=== PATIENT | female | born 1960 | race Caucasian/White ===

== ENCOUNTER → 2020-08-14 | Outpatient (CLI) | payer BC ==
[~2020-08-14] MED LIST: REGADENOSON 0.4 MG/5 ML SYRINGE IV ONE
--- NOTE | 2020-08-14 10:47 | NM ---
EXAMINATION TYPE: NM stress lexiscan cardiolite DATE OF EXAM: 08/14/2020 COMPARISON: Prior nuclear medicine Lexiscan May 28, 2012 HISTORY: History of hypercholesterolemia and family history of heart attack presents with chest pain, palpitations, and abnormal EKG TECHNIQUE: After the intravenous administration of 9.77 mCi Tc 99m Sestamibi - Cardiolite resting SP ECT images acquired 45 minutes post injection. The patient received 0.4mg Lexiscan, 25.8 mCi Tc 99m Sestamibi - Stress images obtained [address] injection FINDINGS: Review of stress and rest SPECT images demonstrates no distinct perfusion abnormality. Gated analysi s shows normal wall motion with an estimated left ventricular ejection fraction of 51 %. IMPRESSION: No scintigraphic evidence for reversible ischemia. No significant change from prior.
--- NOTE | 2020-08-15 08:54 | EST ---
EXERCISE STRESS AGE: 60 SEX: Female HT: 5'2" WT: 136 lbs. PROTOCOL: Lexiscan Cardiolite STAGE: N/A DURATION OF EXERCISE: 5 min. HEART RATE REST: 77 BLOOD PRESSURE REST: 145/84 MAXIMUM HEART RATE ACHIEVED: 115 MAXIMUM BLOOD PRESSURE: 151/66 85% MPHR: 134 100% MPHR: 158 METS: N/A INDICATIONS: Chest pain. CLINICAL INFORMATION: STRESS DATA: Heart rate 77, pressure is 145/84 mmHg. Baseline EKG showed sinus mechanism. 0.4 mg of Lexiscan given over 15 seconds per protocol. Max heart rate was 115 beats per minute. Maximum pressure was 151/66 mmHg. Clinically, the patient did not have any symptoms of chest pain or chest discomfort and the EKG did not show any significant ST or T-wave abnormalities concerning for ischemia. CONCLUSION: 1. Nondiagnostic electrocardiogram stress testing in response to Lexiscan. 2. Please follow up on the Cardiolite portion on separate report. MMODL / IJN: [id number] /
== END | disposition home or self-care (01) ==
LOC: RADNMMAIN 07:54
PROVIDERS: ATTEND Internal Medicine
DX: I44.4 Left anterior fascicular block (principal)
CPT/HCPCS: 93017; 78452; A9500; J2785

== ENCOUNTER 2021-03-13 09:42 | Day surgery (SDC) | payer BC ==
[2021-03-08 14:31] VITALS: BMI 25.4
[~2021-03-13 09:42] MED LIST changes: +LACTATED RINGERS 1,000 ML IV SCH; +LIDOCAINE 1% (10MG/ML) FOR IV START INTRADERMA PRN; -REGADENOSON 0.4 MG/5 ML SYRINGE IV ONE
[2021-03-13 09:56] VITALS: TEMP 97.1
[2021-03-13] MEDS ORDERED: LIDOCAINE 1% (10MG/ML) FOR IV START INTRADERMA ONE (10:01)
[2021-03-13] MEDS ORDERED: PROPOFOL 10 MG/ML 20 ML VIAL IV ONE (10:38)
[2021-03-13] MEDS ORDERED: LIDOCAINE 1% INJ 10MG/ML (20 ML MDV) ONE (10:38)
--- NOTE | 2021-03-13 10:42 | P.GSHP ---
History of Present Illness H&P Date: 03/13/21 Chief Complaint: Colon cancer screening, GERD Patient here today for upper and lower endoscopy. Last scope done 2015. Patient with history of gastritis, hiatal hernia. Has had some persistent reflux and intermittent episodes of dysphagia at times. No family history of co gabrielle cancer. No history of previous polyps. Past Medical History Past Medical History: GERD/Reflux, Hyperlipidemia Additional Past Medical History / Comment(s): HIATAL HERNIA, states had a work- up for an extra heartbeat. States everything normal. History of Any Multi-Drug Resistant Organisms: None Reported Past Surgical History: Hysterectomy, Orthopedic Surgery, Tonsillectomy, Tubal Ligation Additional Past Surgical History / Comment(s): ARTHROSCOPIC RIGHT KNEE, LEFT MIDDLE FINGER, LEFT FOOT, RIGHT KNEE-TENDON. Previous EGD & colonoscopy. Past Anesthesia/Blood Transfusion Reactions: Motion Sickness Smoking Status: Never smoker - Past Family History Father Family Medical History: Cancer Medications and Allergies Home Medications Medication Instructions Recorded Confirmed Type Atorvastatin Calcium [Lipitor] 10 mg PO HS 03/08/21 03/08/21 History Cholecalciferol (Vitamin D3) 125 mcg PO DAILY 03/08/21 03/08/21 History [Vitamin D3 (125 MCG = 5,000 IU)] Cyanocobalamin (Vitamin B-12) 1,000 mcg PO DAILY 03/08/21 03/08/21 History [Vitamin B12] Lansoprazole [Prevacid] 15 mg PO DAILY 03/08/21 03/08/21 History Fexofenadine HCl [Kathie Allergy] 60 mg PO ONCE 03/13/21 03/13/21 History Allergies Allergy/AdvReac Type Severity Reaction Status Date / Time acetaminophen [From Tylenol] Allergy Headaches Verified 03/13/21 09:58 black walnut Allergy Swelling Verified 03/13/21 09:58 OF THROAT [employer] Allergy Swelling Verified 03/13/21 09:58 OF THROAT codeine Allergy Nausea & Verified 03/13/21 09:58 Vomiting multivitamin Allergy Headaches Uncoded 03/13/21 09:58 Surgical - Exam Vital Signs Temp Pulse Resp BP Pulse Ox 97.1 F L 80 16 166/79 99 03/13/21 09:52 03/13/21 09:52 03/13/21 09:52 03/13/21 09:52 03/13/21 09:52 Physical exam: General: Well-developed, well-nourished HEENT: Normocephalic, sclerae nonicteric Abdomen: Nontender, nondistended Extremities: No edema Neuro: Alert and oriented Assessment and Plan (1) Colon cancer screening Narrative/Plan: Will proceed with upper and lower endoscopy Current Visit: Yes Status: Acute Code(s): Z12.11 - ENCOUNTER FOR SCREENING FOR MALIGNANT NEOPLASM OF COLON SNOMED Code(s): 951405658
--- NOTE | 2021-03-13 11:00 | P.PCN ---
Date of Procedure: 03/13/21 Procedure(s) Performed: PREOPERATIVE DIAGNOSIS: GERD, screening POSTOPERATIVE DIAGNOSIS: Mild gastritis, small gastric polyps, small sliding hiatal hernia, normal colon PROCEDURE: 1. EGD with biopsy 2. Colonoscopy ANESTHESIA: MAC SURGEON: Franky Renner M.D. SPECIMENS: Gastric polyp, antrum ENDOSCOPIC PROCEDURE: The patient was on the endoscopy table in the left decubitus position. The Olympus gastroscope was inserted into the oropharynx and passed under direct visualization to the region of the third portion of the duodenum. From that point the scope was slowly withdrawn inspecting all surfaces carefully. There were no neoplastic inflammatory or polypoid lesions throughout the duodenum. The pylorus was widely patent. The stomach was carefully inspected. There was mild gastritis present. A biopsy of the antrum took place to rule out H. pylori. Patient also had multiple small gastric polyps. The largest one was removed using the cold biopsy forceps. Retroflexion revealed a small sliding hiatal hernia. The esophagus was then carefully examined. There were no neoplastic inflammatory or polypoid lesions throughout the visualized esophagus. The patient was kept on the endoscopy table in the left decubitus position. The Olympus colonoscope was inserted into the anus and passed under direct visualization to the base of the cecum. The appendiceal orifice was visualized. From that point the scope was slowly withdrawn inspecting all surfaces carefully. There were no neoplastic inflammatory or polypoid lesions throughout the cecum, ascending, transverse, descending, sigmoid and rectum. There was no visible diverticulosis noted. Digital rectal examination was normal. The patient was taken to the recovery room in stable condition per anesthesia guidelines. RECOMMENDATIONS: Resume diet. Follow-up colonoscopy in 10 years.
[2021-03-13 11:03] VITALS: BP 124/65; PULSE 76; RESP 12
== END 2021-03-13 11:45 | disposition home or self-care (01) ==
LOC: ORWHC2ENDO 09:42
PROVIDERS: ATTEND Surgery
DX: Z12.11 Encounter for screening for malignant neoplasm of colon (principal); K29.50 Unspecified chronic gastritis without bleeding; K31.7 Polyp of stomach and duodenum; K44.9 Diaphragmatic hernia without obstruction or gangrene; K21.9 Gastro-esophageal reflux disease without esophagitis; E78.5 Hyperlipidemia, unspecified; Z90.710 Acquired absence of both cervix and uterus; Z90.89 Acquired absence of other organs; Z98.51 Tubal ligation status; Z98.890 Other specified postprocedural states; Z80.9 Family history of malignant neoplasm, unspecified; Z79.899 Other long term (current) drug therapy; Z88.6 Allergy status to analgesic agent; Z88.5 Allergy status to narcotic agent; Z91.018 Allergy to other foods; Z88.8 Allergy status to other drugs, medicaments and biological substances
CPT/HCPCS: 88305; 43239; J2001; J2704; G0121

== ENCOUNTER 2022-05-06 08:16 | Day surgery (SDC) | payer BC ==
[2022-05-01 10:43] VITALS: BMI 25.6
--- NOTE | 2022-05-06 06:03 | HP ---
HISTORY AND PHYSICAL DATE OF SURGERY: 05/06/2022. HISTORY OF PRESENT ILLNESS: Mery Ferreira is a 62-year-old patient, seen with symptomatic right knee osteoarthritis. We discussed options for treatment. She elected to proceed with right total knee arthroplasty. Consent was obtained. Medical clearance was provided. PAST MEDICAL HISTORY: Hyperlipidemia, gastroesophageal reflux disease. PAST SURGICAL HISTORY: Tubal ligation, foot surgery, hysterectomy, knee arthroscopy. DAILY MEDICATIONS: 1. Lipitor. 2. Omeprazole. 3. Ibuprofen. ALLERGIES: Codeine. SOCIAL HISTORY: She denies tobacco use. PHYSICAL EVALUATION OF THE RIGHT KNEE: Her range of motion is 0 to 125. Mild effusion. Tenderness, medial joint line. Crepitus, medial patellofemoral compartments with range of motion. Pain with patellofemoral compression. Ligaments stable. Hip rotation without pain. Her distal neurovascular exam is intact. RADIOGRAPHS: Radiographs of the right knee reveal severe osteoarthritic changes. IMPRESSION: 1. Right knee osteoarthritis. 2. Hyperlipidemia. 3. Gastroesophageal reflux disease. PLAN: Right total knee arthroplasty. MMODL / IJN: [id number] /
[~2022-05-06 08:16] MED LIST changes: +ACETAMINOPHEN TAB 500 MG TAB PO PRN; +MELOXICAM 7.5 MG TAB PO PRN; +ONDANSETRON 4 MG/2 ML VIAL IVP ONE; +TRANEXAMIC ACID IN NACL,ISO-OS 1,000 MG in SALINE 1 100ML.BAG IVPB PRN; +fentaNYL (PF) 50 MCG/ML 2 ML AMP IV PRN
[2022-05-06] MEDS ORDERED: DEXAMETHASONE SOD PHOSPHATE 4 MG/ML 1 ML VIAL IVP ONE (09:21)
[2022-05-06] MEDS ORDERED: SCOPOLAMINE 1 MG/72 HR PATCH TRANSDERM ONE (09:21)
[2022-05-06] MEDS ORDERED: MIDAZOLAM 2 MG/2 ML VIAL IVP ONE (09:24)
[2022-05-06] MEDS ORDERED: fentaNYL (PF) 50 MCG/ML 2 ML AMP IVP ONE (09:26)
[2022-05-06] MEDS ORDERED: TRANEXAMIC ACID IN NACL,ISO-OS 1,000 MG/100 ML BAG ONE (10:10)
[2022-05-06] MEDS ORDERED: SUCCINYLCHOLINE CHLORIDE 200 MG/10 ML VIAL IV ONE (10:10)
[2022-05-06] MEDS ORDERED: fentaNYL (PF) 50 MCG/ML 2 ML AMP ONE (10:10)
[2022-05-06] MEDS ORDERED: PROPOFOL 10 MG/ML 20 ML VIAL IV ONE (10:10)
[2022-05-06] MEDS ORDERED: ROPIVACAINE 5 MG/ML 30 ML VIAL ONE (10:10)
[2022-05-06] MEDS ORDERED: LIDOCAINE 2% INJ 20 MG/ML (2 ML VIAL) ONE (10:10)
[2022-05-06] MEDS ORDERED: MIDAZOLAM 2 MG/2 ML VIAL ONE (10:10)
[2022-05-06] MEDS ORDERED: ceFAZolin 1,000 MG in SODIUM CHLORIDE 0.9% 1,000 ML IRRIGATION ONE (10:39)
[2022-05-06] MEDS ORDERED: LACTATED RINGERS 1,000 ML IV ONE ×2 (11:01→11:45)
[2022-05-06] MEDS ORDERED: NALOXONE 0.4 MG/ML 1 ML VIAL IV PRN (11:45)
[2022-05-06] MEDS ORDERED: HYDROcodone/APAP 5-325MG 1 EACH TAB PO PRN (11:45)
[2022-05-06] MEDS ORDERED: HYDROmorphone 0.5 MG/0.5 ML SYRINGE IVP PRN ×2 (11:45)
[2022-05-06] MEDS ORDERED: HYDROmorphone 1 MG/ML 1 ML SYRINGE IVP PRN (11:45)
[2022-05-06] MEDS ORDERED: ONDANSETRON 4 MG/2 ML VIAL IVP PRN (11:45)
[2022-05-06] MEDS ORDERED: HYDROcodone/APAP 7.5-325MG 1 EACH TAB PO PRN (11:45)
--- NOTE | 2022-05-06 11:45 | P.OP ---
Date of Procedure: 05/06/22 Preoperative Diagnosis: Right knee osteoarthritis Postoperative Diagnosis: Right knee osteoarthritis Procedure(s) Performed: Right total knee arthroplasty Implants: 1. Depuy attune size 4 narrow right cruciate retaining cemented femur 2. Depuy attune 4 fixed bearing cemented tibial baseplate 3. Depuy attune size 4 fixed bearing cruciate retaining 8mm polyethylene tibial insert 4. Depuy attune 32 mm all polyethylene cemented patella Anesthesia: GETA, regional (Adductor canal catheter, Ipack block) Surgeon: Stuart Norris Amortization Schedule Clerk #1: Iraj Holley Estimated Blood Loss (ml): 40 Pathology: other (Bone) Condition: stable Disposition: PACU Indications for Procedure: 62-year-old patient seen with symptomatic right knee osteoarthritis. After treatment options were discussed, she elected to proceed with total knee art hroplasty. Operative Findings: See description of procedure Description of Procedure: Patient was taken to the operative suite after having an adductor canal catheter placed by the department of anesthesia as well as an Ipack block for postoperative pain management. Patient underwent a general anesthetic by the department of anesthesia. Patient was given preoperative IV intake antibiotics and TXA. A well-padded tourniquet was placed about the right lower extremity. The lower extremity was then prepped and draped in the normal sterile orthopedic fashion. The extremity was elevated, a tourniquet was insufflated to 300. A standard anterior incision was made sharply through skin. Dissection was taken down through the subcutaneous soft tissues down to the extensor mechanism. A medial arthrotomy was performed, patella was everted and knee was flexed. There was advanced osteoarthritis noted. I introduced my distal intramedullary fe moral drill. I then introduced the distal femoral cutting jig. Iraj MILLIGAN secured the cutting jig with 2 pins. I held retractors in position while Mark MILLIGAN performed the distal femoral resection through the guide area we now removed her distal femoral cutting guide. We now placed our 4-in-1 femoral cutting block and positioned and it was secured with 2 pins by Iraj MILLIGAN while I held the block in position. The distal femoral finishing was now completed. A proximal tibial cutting guide was positioned. I held the guide in the appropriate position with both hands while Iraj MILLIGAN inserted stabilizing pins into the guide. Proximal tibial cut was made. We now placed a trial femoral component into position, along with an appropriate size tibial tray and insert. We now took the knee through range of motion and had full extension good flexion and good overall soft tissue balance noted. The patella was everted and stabilized with 2 towel clips held by Iraj MILLIGAN while I performed a flush with patellar quad tendon utilizing a fresh sawblade. We templated the patella, appropriate drill holes were made. An appropriate trial patella was positioned, knee was taken through full range of motion with the patella tracking very nicely. The trial patella was removed. Drill holes were made through the femoral component. All trial components were removed after ma rking off the appropriate rotation of the tibia. Retractors were now positioned along the proximal tibia. An appropriate keel punch was made with the appropriate size tibial guide by myself while Mark MILLIGAN assisted by holding retractors. At this point appropriate size implants were chosen and opened. The joint was irrigated copiously with pulse lavage mechanical irrigation. The wound was irrigated with pulse lavage mechanical irrigation. We mixed antibiotic methylmethacrylate. We placed the knee into flexion. We placed multiple retractors assisted by Iraj MILLIGAN to expose the proximal tibia. Once the methyl methacrylate was ready, the tibial component was cemented into place removing any excess methylmethacrylate form by both myself and Iraj MILLIGAN. The femoral component was cemented into place removing the removing any excess methylmethacrylate performed by both myself and Iraj MILLIGAN. We then inserted the appropriate size polyethylene tibial insert. We made sure that it was locked into position. We took the knee into full extension, and then back in a flexion making sure we had removed any excess methylmethacrylate. The patellar component was then cemented down and secured with clamp. Excess methylmethacrylate removed. We kept the knee in full extension, patellar clamp in position until methylmethacrylate had hardened. Once it had hardened the [employer] watson clamp was removed. The knee was taken through full range of motion. The patella tracked nicely. There was good soft tissue balancing. The tourniquet was now released. Additional hemostasis was achieved via electrocautery. A second gram of TXA was given. The wound again was irrigated with pulse lavage mechanical irrigation. The superficial soft tissues were infiltrated local analgesic. The extensor mechanism was repaired with Ethibond suture. We checked the repair with range of motion and it was stable. The subcutaneous soft tissues were repaired with Vicryl in layers. The skin was approximated with pernio/Dermabond. Sterile dressings were applied followed by loose web roll and Nacho bandage. The patient was transferred to a bed, and taken to recovery in stable and satisfactory condition. Iraj MILLIGAN assisted with this complex procedure.
[2022-05-06 12:19] VITALS: TEMP 97
[2022-05-06] MEDS: HYDROmorphone 0.5 MG/0.5 ML SYRINGE IVP ONE ×2 (12:22→12:50)
[2022-05-06] MEDS ORDERED: ROPIVACAINE 1,100 MG, SODIUM CHLORIDE 0.9% 500 ML 330 ML, EMPTY PAIN BALL 1 EACH MISCELLANE PRN ×2 (12:41)
[2022-05-06] MEDS ORDERED: HYDROmorphone 0.5 MG/0.5 ML SYRINGE IVP ONE (13:06)
[2022-05-06 13:21] VITALS: RESP 16
--- NOTE | 2022-05-06 13:45 | XR ---
EXAMINATION TYPE: XR knee limited RT DATE OF EXAM: 05/06/2022 CLINICAL HISTORY: Right knee pain and arthritis status post total knee replacement. TECHNIQUE: Portable AP and crosstable lateral views of the right knee are obtained immediately posto peratively. COMPARISON: None FINDINGS: Metallic hardware from total right knee arthroplasty is seen and appears satisfactory in a lignment and position. There is evidence of recent surgery with diffuse subcutaneous gas and soft ti ssue swelling noted. IMPRESSION: METALLIC HARDWARE FROM TOTAL RIGHT KNEE ARTHROPLASTY IS SATISFACTORY IN ALIGNMENT.
[2022-05-06] MEDS ORDERED: ROPIVACAINE 0.2%-NS ON-Q PUMP 1,090 MG, EMPTY PAIN BALL 1 EACH MISCELLANE PRN (15:42)
--- NOTE | 2022-05-06 15:42 | P.ANPRN ---
Procedure Note - Anesthesia - Nerve Block Performed Right Adductor Canal Infusion Time Out Performed: Yes (0923) Date of Procedure: 05/06/22 Procedure Start Time: : Procedure Stop Time: :34 Location of Patient: PreOp Indication: Acute Post-Operative Pain, Dx/Pain Location (Right Knee) Specifically requested for management of pain by Dr.: Stuart Norris Sedation Type: Sedate with meaningful contact maintained Preparation: Sterile Prep, Sterile Dressing Position: Supine Catheter: Indwelling Needle Types: Pajunk Needle Gauge: 18 Ultrasound used to visualize needle placement: Yes Ultrasound used to observe medication spread: Yes Injectate: 0.5% Ropivacaine (see comment for volume) (20 cc) Blood Aspirated: No Pain Paresthesia on Injection Noted: No Resistance on Injection: Normal Image Stored and Saved: Yes Events: Uneventful and Well Tolerated Right iPack Single Time Out Performed: Yes Date of Procedure: 05/06/22 Location of Patient: PreOp Indication: Acute Post-Operative Pain, Dx/Pain Location (Right knee) Specifically requested for management of pain by Dr.: Stuart Norris Sedation Type: Sedate with meaningful contact maintained Preparation: Sterile Prep Position: Left Lateral Catheter: None Needle Types: Pajunk Needle Gauge: 21 (100 mm) Ultrasound used to visualize needle placement: Yes Ultrasound used to observe medication spread: Yes Injectate: 0.5% Ropivacaine (see comment for volume) (20 cc) Blood Aspirated: No Pain Paresthesia on Injection Noted: No Resistance on Injection: Normal Image Stored and Saved: Yes Events: Uneventful and Well Tolerated
[2022-05-06 16:05] VITALS: BP 129/71; PULSE 67
== END 2022-05-06 16:53 | disposition home health service (06) ==
LOC: OR 08:16
PROVIDERS: ATTEND Orthopaedic Surgery
DX: M17.11 Unilateral primary osteoarthritis, right knee (principal); G89.18 Other acute postprocedural pain; E78.5 Hyperlipidemia, unspecified; K21.9 Gastro-esophageal reflux disease without esophagitis; I10 Essential (primary) hypertension; M25.461 Effusion, right knee; Z98.51 Tubal ligation status; Z47.89 Encounter for other orthopedic aftercare; Z90.710 Acquired absence of both cervix and uterus; Z79.02 Long term (current) use of antithrombotics/antiplatelets; Z79.83 Long term (current) use of bisphosphonates; Z79.1 Long term (current) use of non-steroidal anti-inflammatories (NSAID); Z88.6 Allergy status to analgesic agent; Z88.5 Allergy status to narcotic agent
CPT/HCPCS: 27447; 97110; 97161; 64999; 64448; 76942; 88300; 73560; C1776; C1713 ×2; J2250; J1100; J0690 ×2; J2405; J3010; J2795; J1170

== ENCOUNTER → 2023-09-09 | Outpatient (CLI) | payer MEDICARE, BC ==
--- NOTE | 2023-09-09 10:52 | MR ---
EXAMINATION TYPE: MR lumbar spine wo con DATE OF EXAM: 09/09/2023 COMPARISON: CT scan 09/21/2012. HISTORY: Back pain TECHNIQUE: T1 and T2 axial and sagittal images of the lumbar spine are submitted. FINDINGS: There is no abnormal signal seen within the visualized spinal cord or paraspinal soft tissu es. There is a benign-appearing cyst within the right kidney. There also is an intermediate area of s ignal along the lower pole medial to the right kidney for which ultrasound is recommended. This may b e artifactual. There is a extrarenal pelvis on the right similar to the previous CT scan of the abdom en and pelvis. At T12-L1 there is moderate degenerative disc disease but no evidence of canal stenosis. Mild circumf erential disc bulging but no foraminal encroachment. There is a grade 1 retrolisthesis of T12-L1. Min imal thickening or subcentimeter nodularity left adrenal gland too small to characterize. At L1-2 there is degenerative disc disease with disc circumferential bulging with no evidence of aric iation or canal stenosis. Neural foramina are patent. Grade 1 retrolisthesis L1-L2. At L2-3 there is degenerative disc disease and facet arthropathy but no disc herniation or canal sten osis or neural foraminal encroachment. At L3-4 there is hypertrophic change of the facets. Mild circumferential disc bulging with no evidenc e of focal herniation or canal stenosis. Neural foramina patent. At L4-5 there is mild degenerative disc disease with grade 1 anterior listhesis. Severe advanced face t arthropathy and ligamentum flavum hypertrophy. Posterior disc bulging greater paracentrally Neural foramina are mildly narrowed and there is moderate central stenosis At L5-S1 there is mild degenerative disc disease. There is mild circumferential disc bulging greater laterally to the right mild right-sided foraminal origin. There is moderate facet arthropathy. No can al stenosis. IMPRESSION: 1. Grade 1 anterolisthesis L4-L5 appears degenerative secondary to advanced facet arthropathy. Modera te canal stenosis. 2. Additional multilevel mild degenerative disc disease. 3. Recommend ultrasound of the right kidney as discussed above. 4. Mild right foraminal encroachment at L5-S1 secondary to lateral disc bulging.
== END | disposition home or self-care (01) ==
LOC: RADMRIMAIN 08:50
PROVIDERS: ATTEND Internal Medicine
DX: M47.816 Spondylosis without myelopathy or radiculopathy, lumbar region (principal); M43.16 Spondylolisthesis, lumbar region; M48.061 Spinal stenosis, lumbar region without neurogenic claudication; M51.36 Other intervertebral disc degeneration, lumbar region; M99.73 Connective tissue and disc stenosis of intervertebral foramina of lumbar region
CPT/HCPCS: 72148

== ENCOUNTER 2023-09-17 06:41 | Day surgery (SDC) | payer MEDICARE, BC, OTHER ==
[2023-09-12 12:06] VITALS: BMI 25.6
[~2023-09-17 06:41] MED LIST changes: -ACETAMINOPHEN TAB 500 MG TAB PO PRN; -LACTATED RINGERS 1,000 ML IV SCH; -LIDOCAINE 1% (10MG/ML) FOR IV START INTRADERMA PRN; -MELOXICAM 7.5 MG TAB PO PRN; -ONDANSETRON 4 MG/2 ML VIAL IVP ONE; +TETRACAINE 0.5% OPHTH (PF) DROPS 4 ML BTL OP PRN; -TRANEXAMIC ACID IN NACL,ISO-OS 1,000 MG in SALINE 1 100ML.BAG IVPB PRN; -fentaNYL (PF) 50 MCG/ML 2 ML AMP IV PRN
[2023-09-17] MEDS: CYCLOPENTOLATE 1% OPHTH SOLN 2 ML BTL OP PRN (07:12)
[2023-09-17] MEDS: LACTATED RINGERS 1,000 ML IV SCH (07:14)
[2023-09-17] MEDS: PHENYLEPHRINE 2.5% OPHTH DRP 2ML OP PRN (07:15)
[2023-09-17] MEDS: CYCLOPENTOLATE 1% OPHTH SOLN 2 ML BTL OP ONE ×2 (07:18→07:24)
[2023-09-17] MEDS ORDERED: MIDAZOLAM 2 MG/2 ML VIAL ONE (07:58)
[2023-09-17] MEDS ORDERED: fentaNYL (PF) 50 MCG/ML 2 ML AMP ONE (07:58)
[2023-09-17] MEDS: MOXIFLOXACIN HCL 0.5% DROPS 3 ML BTL OP PRN (08:16)
[2023-09-17] MEDS: EPINEPHrine (PF) 0.3 ML in BALANCED SALT IRRIG SOLN COMB2 500 ML IRRIGATION ONE (08:16)
[2023-09-17] MEDS: LIDOCAINE 1% (PF) 10MG/ML VIAL MISCELLANE ONE (08:16)
[2023-09-17] MEDS: HYALURONATE SODIUM INTRAOCULAR 1 EACH SYRINGE (12MG/ML) INTRAOCULA ONE (08:16)
[2023-09-17] MEDS: TIMOLOL 0.5% OPHTH DROPS 5 ML BTL OP PRN (08:16)
[2023-09-17] MEDS: BALANCED SALT IRRIG SOLN COMB2 15 ML IRRIG.SOLN INTRAOCULA ONE (08:16)
--- NOTE | 2023-09-17 08:39 | P.OP ---
Date of Procedure: 09/17/23 Preoperative Diagnosis: NS & CS & astig Postoperative Diagnosis: same Procedure(s) Performed: same Implants: [id number] 21.50 Anesthesia: MAC Surgeon: Ben Cornelius Pathology: none sent Condition: stable Disposition: same day Indications for Procedure: blurry vision Operative Findings: no complications
[2023-09-17 09:07] VITALS: TEMP 97
[2023-09-17 09:38] VITALS: BP 133/86; PULSE 69; RESP 17
--- NOTE | 2023-09-18 07:37 | OP ---
OPERATIVE REPORT DATE OF SERVICE : 09/17/2023 PROCEDURES PERFORMED: Phacoemulsification of cataract and intraocular lens implant of the right eye. PREOPERATIVE DIAGNOSES: 1. Nuclear sclerosis. 2. Cortical sclerosis. POSTOPERATIVE DIAGNOSES: 1. Nuclear sclerosis. 2. Cortical sclerosis. ANESTHESIA: Topical. ESTIMATED BLOOD LOSS: None. SPECIMEN TAKEN: None. NARRATIVE: After obtaining the appropriate consent in the preoperative area, the patient was asked to sit upright and the axes of 0 and 180 degrees were identified and marked with a gentian levy marker. She was then brought to the operating room where she was placed under cardiac monitoring, prepped and draped in the usual sterile manner. She was approached from her right temporal side. Using previously acquired corneal topography information, the axis of 4 degrees was identified and marked with a Platyp[employer] TV axis marker. At the 11 o'clock position, a paracentesis with an MVR blade was created through this opening, 1% Xylocaine MPF 50:50 mix with balanced salt solution was injected into the anterior chamber. This was followed by stabilization of the anterior chamber with Amvisc. At the 9 o'clock position, a 2.5 mm keratome was used to create a self-sealing corneal flap incision. Through this opening, a cystotome was introduced to begin a continuous tear capsulorrhexis, which was then completed using the Utrata forceps. Hydrodissection and hydrodelineation of the lens were accomplished with balanced salt solution. Phacoemulsification of the lens utilizing phacochop was accomplished in 9.09 seconds at 9.4% power. This was followed by installation of additional Xylocaine MPF and removal of the remaining cortical material under irrigation and aspiration as well as careful polishing of the posterior capsule in the capsule vacuum mode. Additional Amvisc was then used to stabilize the lens capsule and a Bausch and Lomb [id number], 21.5 diopter spherical equivalent posterior chamber intraocular lens was inserted into the bag without difficulty. The remaining viscoelastic was removed from in and around the intraocular lens. The lens was rotated then to align with the 4 degree guero previously placed on the patient's cornea. The eye was then brought to normal intraocular pressure through the paracentesis port and the wounds were secured using Tisseel. She then received 2 drops of 0.5% timolol followed by 2 drops of moxifloxacin, was then lightly patched and shielded in the usual manner. There were no complications from the procedure. She tolerated the procedure well and was returned to outpatient recovery in good condition. [id number] / IJN: [id number] /
== END 2023-09-17 09:16 | disposition home or self-care (01) ==
LOC: OR 06:41
PROVIDERS: ATTEND Ophthalmology
DX: H25.11 Age-related nuclear cataract, right eye (principal); E78.5 Hyperlipidemia, unspecified; K21.9 Gastro-esophageal reflux disease without esophagitis; Z88.5 Allergy status to narcotic agent; Z96.1 Presence of intraocular lens; Z79.899 Other long term (current) drug therapy
CPT/HCPCS: 66984; V2787; C1780; J2250; J0171; J3010; J2001

== ENCOUNTER 2023-10-01 06:57 | Day surgery (SDC) | payer MEDICARE, BC, OTHER ==
[2023-09-26 16:42] VITALS: BMI 25.6
[2023-10-01] MEDS: LACTATED RINGERS 1,000 ML IV SCH (07:17)
[2023-10-01] MEDS: CYCLOPENTOLATE 1% OPHTH SOLN 2 ML BTL OP PRN (07:29)
[2023-10-01] MEDS: PHENYLEPHRINE 2.5% OPHTH DRP 2ML OP PRN (07:32)
[2023-10-01 07:41] VITALS: TEMP 98.6
[2023-10-01] MEDS ORDERED: fentaNYL (PF) 50 MCG/ML 2 ML AMP ONE (08:02)
[2023-10-01] MEDS ORDERED: MIDAZOLAM 2 MG/2 ML VIAL ONE (08:02)
[2023-10-01] MEDS: EPINEPHrine (PF) 0.3 ML in BALANCED SALT IRRIG SOLN COMB2 500 ML IRRIGATION ONE (08:21)
[2023-10-01] MEDS: HYALURONATE SODIUM INTRAOCULAR 1 EACH SYRINGE (12MG/ML) INTRAOCULA ONE (08:25)
[2023-10-01] MEDS: MOXIFLOXACIN HCL 0.5% DROPS 3 ML BTL OP PRN (08:26)
[2023-10-01] MEDS: BALANCED SALT IRRIG SOLN COMB2 15 ML IRRIG.SOLN INTRAOCULA ONE (08:26)
[2023-10-01] MEDS: LIDOCAINE 1% (PF) 10MG/ML VIAL INTRAARTIC ONE (08:26)
[2023-10-01] MEDS: TIMOLOL 0.5% OPHTH DROPS 5 ML BTL OP PRN (08:27)
--- NOTE | 2023-10-01 08:47 | P.OP ---
Date of Procedure: 10/01/23 Preoperative Diagnosis: NS & CS Postoperative Diagnosis: same Procedure(s) Performed: PIOL, OS Implants: [id number] 21.00 Anesthesia: MAC Surgeon: Ben Cornelius Pathology: none sent Condition: stable Disposition: same day Indications for Procedure: blurry Operative Findings: no complications
[2023-10-01 09:22] VITALS: BP 131/54; PULSE 77; RESP 16
--- NOTE | 2023-10-01 13:01 | OP ---
OPERATIVE REPORT DATE OF SERVICE : 10/01/2023 PROCEDURE: Phacoemulsification cataract and intraocular lens implant of the left eye. PREOPERATIVE DIAGNOSES: Nuclear sclerosis, cortical sclerosis, and regular astigmatism. POSTOPERATIVE DIAGNOSES: Nuclear sclerosis, cortical sclerosis, and regular astigmatism. NARRATIVE: After obtaining the appropriate consent, the patient was brought to the operating room. There, she was placed under cardiac monitoring, prepped and draped in the usual sterile manner. She was approached from her left temporal side, and using previously acquired corneal topography information, the axis of 3 degrees was identified and marked with a [facility] [place] Marker. At the 5 o'clock position, an MVR blade was used to create a paracentesis port. Through this opening, 1% Xylocaine MPF 50:50 mix with balanced salt solution was injected into the anterior chamber. This was followed by stabilization of the anterior chamber with Amvisc. At the 3 o'clock position, a 2.5 mm keratome was used to create a self-sealing corneal flap incision. Through this opening, a cystotome was introduced to begin a continuous tear capsulorrhexis, which was then completed using the Utrata forceps. Hydrodissection and hydrodelineation of the lens were accomplished with balanced salt solution. Phacoemulsification lens utilizing phaco chop was accomplished in 9.67 seconds at 11.8% power. Additional lidocaine MPF was instilled into the anterior chamber. This was followed by removal of the remaining cortical material under irrigation and aspiration as well as careful polishing of the posterior capsule in capsule vacuum mode. Additionally, it was noted that there was some tenacious cortical material, so using both to loosen the remaining cortical material, this was accomplished without difficulty. Amvisc was then used to stabilize the capsular bag and a Bausch and Lomb [id number], 21-diopter posterior chamber intraocular lens was then inserted into the capsular bag without difficulty. The remaining viscoelastic was removed from in and around the intraocular lens and the lens was rotated to its proper final resting position in accordance with the axis guero on the patient's cornea. The eye was then brought to normal intraocular pressure through the paracentesis port and Tisseel was used to ensure watertight integrity. She then received 2 drops of 0.5% moxifloxacin and 2 drops of 0.5% timolol. She was then lightly patched and shielded in the usual manner. There were no complications from the procedure. She tolerated the procedure well and was returned to outpatient recovery in good condition. EVAN / GERRYN: [id number] /
== END 2023-10-01 09:24 | disposition home or self-care (01) ==
LOC: OR 06:57
PROVIDERS: ATTEND Ophthalmology
DX: H25.12 Age-related nuclear cataract, left eye (principal); H25.012 Cortical age-related cataract, left eye; H52.222 Regular astigmatism, left eye; E78.5 Hyperlipidemia, unspecified; Z88.5 Allergy status to narcotic agent; Z79.899 Other long term (current) drug therapy; Z88.6 Allergy status to analgesic agent
CPT/HCPCS: 66984; V2787; C1780; J2250; J0171; J3010; J2001

== ENCOUNTER → 2023-12-02 | Outpatient (CLI) | payer MEDICARE, BC ==
--- NOTE | 2023-12-03 08:54 | US ---
EXAMINATION TYPE: US kidneys/renal and bladder DATE OF EXAM: 12/02/2023 COMPARISON: NONE CLINICAL INDICATION: Female, 63 years old with history of N28.1 CYST OF KIDNEY, ACQUIRED; known right renal cyst, no symptoms, area noted on MRI EXAM MEASUREMENTS: Right Kidney: 9.2 x 3.7 x 4.4 cm Left Kidney: 9.1 x 3.9 x 5.2 cm Right Kidney: upper pole simple cyst seen = 1.1 x 1.1 x 1.2cm Left Kidney: No hydronephrosis or masses seen Bladder: wnl Bilateral Jets seen: yes IMPRESSION: #1 simple cyst right kidney
== END | disposition home or self-care (01) ==
LOC: RADUSWWP 11:22
PROVIDERS: ATTEND Internal Medicine
DX: N28.1 Cyst of kidney, acquired (principal)
CPT/HCPCS: 76770

== ENCOUNTER 2024-07-13 09:00 | Day surgery (SDC) | payer MEDICARE, BC ==
[2024-07-13 09:20] VITALS: TEMP 97.2
[2024-07-13] MEDS: LACTATED RINGERS 1,000 ML IV SCH (09:26)
[2024-07-13] MEDS: FAMOTIDINE 20 MG/2 ML VIAL IV STA (09:31)
[2024-07-13] MEDS: ONDANSETRON 4 MG/2 ML VIAL IVP STA (09:32)
[2024-07-13] MEDS ORDERED: LIDOCAINE 2% (PF) 20 MG/ML 5 ML VIAL ONE (09:53)
[2024-07-13] MEDS ORDERED: PROPOFOL 10 MG/ML 20 ML VIAL IV ONE (09:53)
--- NOTE | 2024-07-13 09:59 | P.GSHP ---
History of Present Illness H&P Date: 07/13/24 Chief Complaint: GERD 64-year-old female here today for upper endoscopy. Last EGD 3 years ago. Patient with ongoing acid reflux. Patient takes lansoprazole 40 mg every morning and 20 mg of Pepcid every evening. Rare episodes of dysphagia. Past Medical History Past Medical History: Eye Disorder, GERD/Reflux, Hyperlipidemia, Musculoskeletal Disorder, Osteoarthritis (OA) Additional Past Medical History / Comment(s): Hiatal hernia. States had a work- up for an extra heartbeat, everything normal. jameson cataract. Bilateral carpal tunnel. cyst on kidney History of Any Multi-Drug Resistant Organisms: None Reported Past Surgical History: Hysterectomy, Joint Replacement, Orthopedic Surgery, Tonsillectomy, Tubal Ligation Additional Past Surgical History / Comment(s): ARTHROSCOPIC RIGHT KNEE, LEFT MIDDLE FINGER, LEFT FOOT SURGERY, RIGHT KNEE-TENDON REPAIR, EGD & colonoscopy, right total knee replacement. jameson cataract removal Past Anesthesia/Blood Transfusion Reactions: Motion Sickness Smoking Status: Never smoker - Past Family History Father Family Medical History: Cancer Sister(s) Family Medical History: Cancer Additional Family Medical History / Comment(s): HEART PROBLEMS DUE TO CHEMO. Medications and Allergies Home Medications Medication Instructions Recorded Confirmed Type Cyanocobalamin (Vitamin B-12) 1,000 mcg PO DAILY 03/08/21 07/08/24 History [Vitamin B12] Lansoprazole [Prevacid] 15 mg PO DAILY 03/08/21 07/08/24 History Fexofenadine HCl [Kathie Allergy] 60 mg PO DAILY 03/13/21 07/08/24 History Cholecalciferol [Vitamin D3 (25 50 mcg PO DAILY 09/12/23 07/08/24 History Mcg = 1000 Iu)] Ibuprofen [Motrin Ib] 400 mg PO Q8H PRN 09/12/23 07/08/24 History Ezetimibe [Zetia] 10 mg PO HS 07/08/24 07/08/24 History Famotidine 40 mg PO HS 07/08/24 07/08/24 History Allergies Allergy/AdvReac Type Severity Reaction Status Date / Time acetaminophen [From Tylenol] Allergy Headaches Verified 07/13/24 09:17 black walnut Allergy Swelling Verified 07/13/24 09:17 OF THROAT [place] And Derivatives Allergy Swelling Verified 07/13/24 09:17 OF THROAT codeine Allergy Nausea & Verified 07/13/24 09:17 Vomiting tree nut Allergy Unknown Verified 07/13/24 09:17 multivitamin Allergy Headaches Uncoded 07/13/24 09:17 Surgical - Exam Vital Signs Temp Pulse Resp BP Pulse Ox 97.2 F L 86 16 126/75 98 07/13/24 09:19 07/13/24 09:19 07/13/24 09:19 07/13/24 09:19 07/13/24 09:19 Physical exam: General: Well-developed, well-nourished HEENT: Normocephalic, sclerae nonicteric Abdomen: Nontender, nondistended Extremities: No edema Neuro: Alert and oriented Assessment and Plan (1) GERD (gastroesophageal reflux disease) Narrative/Plan: Will proceed with EGD at this time. Current Visit: Yes Status: Acute Code(s): K21.9 - GASTRO-ESOPHAGEAL REFLUX DISEASE WITHOUT ESOPHAGITIS SNOMED Code(s): 450562872
--- NOTE | 2024-07-13 10:06 | P.PCN ---
Date of Procedure: 07/13/24 Procedure(s) Performed: Preoperative Dx: GERD Postoperative Dx: Gastritis, gastric polyps, hiatal hernia Procedure: EGD with Bx Anesthesia: Sedation Endoscopist: Dr. Renner Specimens: Antrum, gastric polyps Endoscopic Procedure: The patient was on the endoscopy table in the left decubitus position. The Olympus gastroscope was inserted into the oropharynx and passed under direct visualization to the region of the third portion of the duodenum. From that point the scope was slowly withdrawn inspecting all surfaces carefully. There were no neoplastic inflammatory or polypoid lesions throughout the duodenum. The pylorus was widely patent. The stomach was carefully inspected. There was mild gastritis present. A biopsy of the antrum took place to rule out H. pylori. Retroflexion revealed a small sliding hiatal hernia. The patient had multiple gastric polyps largest 1 measuring about 7 mm. Biopsy of the largest polyp took place. The esophagus was examined. There was no inflammatory changes noted. The patient was then taken to the recovery room in stable condition per anesthesia guidelines. Recommendations: Await biopsy results. Continue antiacids.
[2024-07-13 10:27] VITALS: BP 135/79; PULSE 68; RESP 16
== END 2024-07-13 10:45 | disposition home or self-care (01) ==
LOC: ORWHC2ENDO 09:00
PROVIDERS: ATTEND Surgery
DX: K21.9 Gastro-esophageal reflux disease without esophagitis (principal); K44.9 Diaphragmatic hernia without obstruction or gangrene; K29.50 Unspecified chronic gastritis without bleeding; K31.7 Polyp of stomach and duodenum; E78.5 Hyperlipidemia, unspecified; M19.90 Unspecified osteoarthritis, unspecified site; Z79.899 Other long term (current) drug therapy; Z96.651 Presence of right artificial knee joint; Z88.6 Allergy status to analgesic agent; Z91.018 Allergy to other foods; Z88.5 Allergy status to narcotic agent
CPT/HCPCS: 88305; 43239; J2405; J3490; J2704; J2003

== ENCOUNTER → 2024-08-05 | Outpatient (CLI) | payer MEDICARE, BC | END | disposition home or self-care (01) | LOC: LABWHC1 12:58 | PROVIDERS: ATTEND Otolaryngology | DX: Z53.9 Procedure and treatment not carried out, unspecified reason (principal) ==

== ENCOUNTER → 2024-08-26 | Outpatient (CLI) | payer MEDICARE, BC ==
[2024-08-26 10:10] VITALS: BP 152/68; PULSE 84; RESP 16; TEMP 98.3
--- NOTE | 2024-08-26 15:41 | P.PAINPG ---
Objective - Vital Signs Vital signs: Vital Signs Temp 98.3 F 08/26/24 09:55 Pulse 84 08/26/24 09:55 Resp 16 08/26/24 09:55 BP 152/68 08/26/24 09:55 Pulse Ox 97 08/26/24 09:55 FiO2 Intake & Output 08/25/24 08/26/24 08/26/24 18:59 06:59 18:59 Weight 63.503 kg PQRS Measure Charge Sheet Mode of Arrival: Ambulatory Comment: HISTORY OF PRESENT ILLNESS: A 64 yr old female as a referral from [facility] presents today w severe and chronic LBP > 5 yrs secondary to radiculopathy, spondylosis and facet arthropathy without myelopathy for evaluation. Pt states pain level is provoked at 6 /10 in intensity, constant, localized in the lumbar spine, predominantly axial, stinging in character w occasional shooting pain towards the hips and LEs. Pain is provoked by over activity. Pain is alleviated by PT x 6 wks which ended in Jul 2024, physician guided home exercises every other day weekly since Jul 2024, heat, medications (Ibu), repositioning and rest . Oswestry axial pain score at 25. PMH: OA, GERD, Hyperlipidemia PSH: EGD/ Colonoscopies, HH, BL Cataract Resection, BL CTR, Hysterectomy, R Total Knee, R Arthroscopy (2013), L 3rd Trigger Finger Release, L Foot Surgery, Tubal Ligation SH: Never smoker, Occ ETOH use, No illicit drug use FH: Fa- CA. Sis- CA All: See list Meds: See list REVIEW OF ORGAN SYSTEMS: CONSTITUTIONAL: No fevers or chills. No recent weight los s. NEUROLOGICAL: + numbness and tingling along the distal extremities. No seizure disorders or headaches. MUSCULOSKELETAL: + pain PSYCHIATRIC: Denies current depression or suicidal thoughts. Physical Examinations : Constitutional : Cooperative , not in acute distress . Neurologic : Cranial nerve II to XII intact. No focal neurological deficits. Psychiatric : alert & oriented x 3. Matching mood & appropriate affect. Judgment & insight intact. Musculoskeletal : Cervical Spine Motor strength in the deltoid and biceps: Normal right side. Normal Left side Motor strength biceps and the wrist ex tensors: Normal right side . Normal left side Motor strength in the triceps muscle: Normal right side. Normal left side Deep tendon reflexes: Normal at the biceps. Normal at Brachioradialis. Normal at triceps Vertebral body tenderness to deep palpation over Cervical facet loading test: positive bilaterally Spurling test: positive bilaterally Neck distraction test: positive bilaterally Dany sign: positive bilaterally Lumbar spine Motor strength lower extremities ,thigh and legs 5/5 Right side , 5/5 Left side Deep tendon reflexes : Normal Knee Jerk. Normal Ankle Jerk Vertebral body tenderness over L5 Chase Test positive Lumbar facet Loading Test: positive Right / positive Left Range of motion of the lumbar spine Flexion 30 degrees, extension 10 degrees Straight Leg Raise test: Left < Right positive at < 35 degrees Idris test: positive right / positive left. Severe tenderness over the Sacroiliac joint on the Right / Left sides Gaenslen test: positive bilaterally Seated flexion test: positive bilaterally. Sacral spine : Severe tenderness over the Sacroiliac joint: right side / left side Range of motion: Flexion of the lumbar spine <60 degrees Range of motion: Extension of the lumbar spine <20 degrees Gaenslen's Test positive Idris test: positive right side / left side Thigh Thrust Test Sacral Thrust Test Imaging: MRI non contrast lumbar spine from 09/09/23 reviewed Assessment/ Plan : L4-L5 anterolisthesis, lumbar facet arthropathy Recommendation of TOBI L5-S1 #1. Risks, benefits of procedure discussed and patient verbalized understanding. Admits to anti- coagulant use or medical history of diabetes. Protocol for discontinuation/ continuation of medications phyllis procedure discussed. All questions answered. I have spent greater than 30 minutes on patient care today. Dr Bob was kd ilable by phone for the evaluation of this patient. The time was used to review the medical records including relevant urine studies and Prescription history (MAPs), review of the available imaging, evaluation and examination of the patient, coordination of care with the medical staff and if applicable referring physicians, as well as creation of the medical record - Pain Location Lower Back Non-Pharmacological Interventions: Physical Therapy, Position/Reposition Pharmacological Interventions: PRN Medication PQRS Narrative: Smoking Status Never smoker Blood Pressure 152/68 Pain Intensity [Lower Back] 6 Scale Used Numeric (1 - 10) Hx Alcohol Use (MH) No Home Medications: Ambulatory Orders Cyanocobalamin (Vitamin B-12) [Vitamin B12] 1,000 mcg PO DAILY 03/08/21 Lansoprazole [Prevacid] 15 mg PO DAILY 03/08/21 Fexofenadine HCl [Kathie Allergy] 60 mg PO DAILY 03/13/21 Cholecalciferol [Vitamin D3 (25 Mcg = 1000 Iu)] 50 mcg PO DAILY 09/12/23 Ibuprofen [Motrin Ib] 400 mg PO Q8H PRN 09/12/23 Ezetimibe [Zetia] 10 mg PO HS 07/08/24 Famotidine 40 mg PO HS 07/08/24 Controlled Substance Measures - Controlled Substance Measures Is patient prescribed a controlled substance at discharge?: No
== END ==
LOC: PNWHC3 09:32
PROVIDERS: ATTEND Specialist
DX: M47.896 Other spondylosis, lumbar region (principal); M43.16 Spondylolisthesis, lumbar region; Z88.6 Allergy status to analgesic agent; Z91.018 Allergy to other foods; Z88.5 Allergy status to narcotic agent
CPT/HCPCS: 99202

== ENCOUNTER 2024-10-05 09:58 | Day surgery (SDC) | payer MEDICARE, BC ==
[2024-10-01 12:14] VITALS: BMI 25.2
[~2024-10-05 09:58] MED LIST changes: +LACTATED RINGERS 1,000 ML IV SCH; -TETRACAINE 0.5% OPHTH (PF) DROPS 4 ML BTL OP PRN
[2024-10-05 10:28] VITALS: TEMP 98.7
[2024-10-05] MEDS ORDERED: IOPAMIDOL M300 15ML VIAL ONE (11:35)
[2024-10-05] MEDS ORDERED: methylPREDNISolone ACETATE 80 MG/ML 1 ML VIAL ONE (11:35)
[2024-10-05 11:54] VITALS: RESP 16
--- NOTE | 2024-10-05 12:04 | FL ---
EXAMINATION TYPE: FL guided pain mgmt statistic Intraoperative/procedural fluoroscopic services were provided. CLINICAL INDICATION:Female, 64 years old with history of LESI; , PHH FINDINGS: Single fluoroscopic images demonstrating lumbar epidural steroid injection. No radiographic evidence for complication. Total fluoroscopy time is 8.0 seconds. DAP: [id number] mGym2 Please see the operative/procedural note for further details. [facility], , 10/05/2024 12:01 PM
[2024-10-05 12:20] VITALS: BP 135/73; PULSE 81
--- NOTE | 2024-10-05 12:24 | P.PCN ---
Description of Procedure: PREOPERATIVE DIAGNOSIS: 1- Lumbar Degenerative Disc Diseases 2-Lumbar spondylosis with Facet arthropathy without myelopathy. 3-lumbar spinal stenosis POSTOPERATIVE DIAGNOSIS: 1-lumbar degenerative disc disease. 2-lumbar spondylosis with facet arthropathy without myelopathy. 3-lumbar spinal stenosis. PROCEDURE Injection of radio contrast material into L5-S1 interspace, interpretation of epidurogram, injection of steroid at L5-S1 epidural space under fluoroscopic guidance. ANESTHESIA: Lidocaine 1% subcutaneously. In OR continuous pulse ox, EKG, blood pressure and verbal communication was maintained with the patient. EBL: Minimal PROCEDURE INDICATION: Before the procedure were discussed with the patient detailed procedure, alternatives, complications including infection, bleeding, nerve damage, paralysis all of which could be permanent. Patient understands and all questions were answered. PROCEDURE DESCRIPTION : After getting consent, patient in OR in prone position. Back was prepped with chlorhexidine and draped in sterile fashion. After injecting 10 mL of 1% lidocaine subcutaneously, a 20-gauge Tuohy needle was introduced at L5-S1 interspace with loss of resistance technique using a syringe filled with air. Negative CSF, negative blood, negative paresthesia. Needle position was confirmed with AP and lateral view of the fluoroscope. After repeat negative aspiration 2 mL of Omnipaque 200 water soluble contrast was injected. Contrast was noted in the epidural space. No contrast was noted into intrathecal or intravascular space. After repeat negative aspiration 6 mL solution was injected intermittently which consists of 5 mL of preservative-free normal saline mixed with 1 mL of 80 mg Depo-Medrol. Needle was withdrawn intact. Skin was cleansed and Band-Aids was applied. DISPOSITION / PLANS: The patient tolerated the procedure well. No complication. The patient was placed in a supine position and transferred to the recovery area in a stable condition for observation. There was no evidence of lower extremity motor or sensory deficit after the procedure. Patient was discharged from the recovery room after meeting discharge criteria. Home discharge instructions were given to the patient by the staff. The patient was reexamined prior to discharge. The patient will schedule a follow up in the clinic in 2-4 weeks.
== END 2024-10-05 12:21 | disposition home or self-care (01) ==
LOC: ORPAIN 09:58
PROVIDERS: ATTEND Anesthesiology
DX: M47.816 Spondylosis without myelopathy or radiculopathy, lumbar region (principal); M51.369 Other intervertebral disc degeneration, lumbar region without mention of lumbar back pain or lower extremity pain; M48.061 Spinal stenosis, lumbar region without neurogenic claudication; Z88.5 Allergy status to narcotic agent
CPT/HCPCS: 62323; Q9967; J1010

== ENCOUNTER → 2024-10-21 | Outpatient (CLI) | payer MEDICARE, BC ==
[2024-10-21 10:54] VITALS: BP 129/78; PULSE 81; RESP 18; TEMP 97.5
--- NOTE | 2024-10-21 14:09 | P.PAINPG ---
PQRS Measure Charge Sheet Comment: HISTORY OF PRESENT ILLNESS: A 64 yr old femalepresents today w severe and chronic LBP > 5 yrs secondary to radiculopathy, spondylosis and facet arthropathy without myelopathy for evaluation s/p TOBI L5-S1 #1. Pt states he experienced 50 % pain relief x 2 wks s/p procedure. Pt states pain level is provoked at 2 /10 in intensity, constant, localized in the lumbar spine, predominantly axial, stinging in character w occasional shooting pain towards the hips and LEs. Pain is provoked by over activity. Pain is alleviated by PT x 6 wks which ended in Jul 2024, physician guided home exercises every other day weekly since Jul 2024, heat, medications, repositioning and rest . Inteventional procedures include TOBI L5-S1 x1 Medications include Ibu REVIEW OF ORGAN SYSTEMS: CONSTITUTIONAL: No fevers or chills. No recent weight loss. NEUROLOGICAL: + numbness and tingling along the distal extremities. No seizure disorders or headaches. MUSCULOSKELETAL: + pain PSYCHIATRIC: Denies current depression or suicidal thoughts. Physical Examinations : Constitutional : Cooperative , not in acute distress . Neurologic : Cranial nerve II to XII intact. No focal neurological deficits. Psychiatric : alert & oriented x 3. Matching mood & appropriate affect. Judgment & insight intact. Musculoskeletal : Cervical Spine Motor strength in the deltoid and biceps: Normal right side. Normal Left side Motor strength biceps and the wrist extensors: Normal right side . Normal left side Motor strength in the triceps muscle: Normal right side. Normal left side Deep tendon reflexes: Normal at the biceps. Normal at Brachioradialis. Normal at triceps Vertebral body tenderness to deep palpation over Cervical facet loading test: positive bilaterally Spurling test: positive bilaterally Neck distraction test: positive bilaterally Dany sign: positive bilaterally Lumbar spine Motor strength lower extremities ,thigh and legs 5/5 Right side , 5/5 Left side Deep tendon reflexes : Normal Knee Jerk. Normal Ankle Jerk Vertebral body tenderness over L5 Chase Test positive Lumbar facet Loading Test: positive Right / positive Left Range of motion of the lumbar spine Flexion 30 degrees, extension 10 degrees Straight Leg Raise test: Left < Right positive at < 35 degrees Idris test: positive right / positive left. Severe tenderness over the Sacroiliac joint on the Right / Left sides Gaenslen test: positive bilaterally Seated flexion test: positive bilaterally. Sacral spine : Severe tenderness over the Sacroiliac joint: right side / left side Range of motion: Flexion of the lumbar spine <60 degrees Range of motion: Extension of the lumbar spine <20 degrees Gaenslen's Test positive Idris test: positive right side / left side Thigh Thrust Test Sacral Thrust Test Imaging: MRI non contrast lumbar spine from 09/09/23 reviewed Assessment/ Plan : L4-L5 anterolisthesis, lumbar facet arthropathy Will manage residual pain and may RTC on an as needed basis. All questions answered. I have spent greater than 30 minutes on patient care today. Dr Bob was available by phone for the evaluation of this patient. The time was used to review the medical records including relevant urine studies and Prescription history (MAPs), review of the available imaging, evaluation and examination of the patient, coordination of care with the medical staff and if applicable referring physicians, as well as creation of the medical record PQRS Narrative: Smoking Status Never smoker Hx Alcohol Use (MH) No Home Medications: Ambulatory Orders Cyanocobalamin (Vitamin B-12) [Vitamin B12] 1,000 mcg PO DAILY 03/08/21 Lansoprazole [Prevacid] 15 mg PO DAILY 03/08/21 Fexofenadine HCl [Kathie Allergy] 60 mg PO DAILY 03/13/21 Cholecalciferol [Vitamin D3 (25 Mcg = 1000 Iu)] 50 mcg PO DAILY 09/12/23 Ibuprofen [Motrin Ib] 400 mg PO Q8H PRN 09/12/23 Ezetimibe [Zetia] 10 mg PO HS 07/08/24 Famotidine 40 mg PO HS 07/08/24 Controlled Substance Measures - Controlled Substance Measures Is patient prescribed a controlled substance at discharge?: No
== END ==
LOC: PNWHC3 10:12
PROVIDERS: ATTEND Specialist
DX: M43.16 Spondylolisthesis, lumbar region (principal); M47.816 Spondylosis without myelopathy or radiculopathy, lumbar region; Z88.6 Allergy status to analgesic agent; Z91.018 Allergy to other foods; Z88.5 Allergy status to narcotic agent; Z91.048 Other nonmedicinal substance allergy status
CPT/HCPCS: 99211